=== PATIENT | male | born 1975 | race African-American/Black ===

== ENCOUNTER 2017-02-17 17:41 | Emergency (ER) | payer OTHER, SELFPAY ==
[2017-02-17] MEDS ORDERED: Acetaminophen 500 MG TAB ONE (18:07)
[2017-02-17] MEDS ORDERED: Cyclobenzaprine 10 MG TAB ONE (18:07)
== END 2017-02-17 18:37 | disposition home or self-care (01) ==
LOC: NAV ERS 17:41
DX: S16.1XXA Strain of muscle, fascia and tendon at neck level, initial encounter (principal); G44.309 Post-traumatic headache, unspecified, not intractable; Z86.718 Personal history of other venous thrombosis and embolism; V89.2XXA Person injured in unspecified motor-vehicle accident, traffic, initial encounter
CPT/HCPCS: 99283

== ENCOUNTER 2017-07-13 11:07 | Emergency (ER) | payer OTHER ==
[2017-07-13] MEDS ORDERED: Fluorescein Opthalmic Strip ONE (11:21)
[2017-07-13] MEDS ORDERED: Proparacaine 0.5% Opth 15 ML BOT ONE (11:21)
[2017-07-13] MEDS ORDERED: Gentamicin Ophth Ointment 0.3% 3.5 gm Tube ONE (11:29)
== END 2017-07-13 11:38 | disposition home or self-care (01) ==
LOC: NAV ERS 11:07
DX: S05.02XA Injury of conjunctiva and corneal abrasion without foreign body, left eye, initial encounter (principal); X58.XXXA Exposure to other specified factors, initial encounter
CPT/HCPCS: 99283

== ENCOUNTER 2019-01-06 11:05 | Emergency (ER) | payer SELFPAY | END 2019-01-06 11:42 | disposition home or self-care (01) | LOC: NAV ERS 11:05 | DX: J06.9 Acute upper respiratory infection, unspecified (principal); Z87.891 Personal history of nicotine dependence; Z86.718 Personal history of other venous thrombosis and embolism | CPT/HCPCS: 99283 ==